=== PATIENT | male | born 1985 | race Caucasian/White ===

== ENCOUNTER 2016-08-09 06:35 | Emergency (ER) | payer BC ==
[2016-08-09 06:47] VITALS: TEMP 97.3; O2SAT 99
--- NOTE | 2016-08-09 07:29 | C.PDOC ---
History Of Present Illness 31 y/o male no pmhx presents to the ED with complaints of left upper back and neck pain x4 days. Pain is worse when turning head to left and movement of the shoulder. Pt admits to heavy lifting at work. Denies trauma. No medications taken. Denies weakness, numbness or any other complaints. Time Seen by Provider: 08/09/16 07:11 Chief Complaint (Nursing): Headache History Per: Patient History/Exam Limitations: no limitations Onset/Duration Of Symptoms: Days Current Symptoms Are (Timing): Still Present Severity: Moderate Quality: "Pain" Preceeding Symptoms: None Recent travel outside of the [place]: No Past Medical History Reviewed: Historical Data, Nursing Documentation, Vital Signs Vital Signs: Last Vital Signs Temp 97.3 F L 08/09/16 06:42 Pulse 63 08/09/16 06:42 Resp 16 08/09/16 06:42 BP 113/7 L 08/09/16 06:42 Pulse Ox 99 08/09/16 07:31 Family History: States: Unknown Family Hx - Social History Hx Alcohol Use: Yes Hx Substance Use: No - Immunization History Hx Influenza Vaccination: No Hx Pneumococcal Vaccination: No Review Of Systems Except As Marked, All Systems Reviewed And Found Negative. Constitutional: Negative for: Fever Musculoskeletal: Positive for: Neck Pain, Back Pain Neurological: Negative for: Weakness, Numbness Physical Exam - Physical Exam Additional Physical Exam Comments: Constitutional: No acute distress. Head: Normocephalic. Atraumatic. Eyes: PERRL. Neck: Supple. Paraspinal tenderness left neck, reproducible with movement. Cardiovascular: Regular rate. Radial pulse 2+ bilaterally. Chest: No tenderness. Respiratory: Clear to auscultation bilaterally. Back: No CVA tenderness. Musculoskeletal: Paraspinal tenderness to left upper back, reproducible with movement. No tenderness or swelling of extremities. Skin: No rash. Neurologic: Alert, no focal deficit. ED Course And Treatment O2 Sat by Pulse Oximetry: 99 (room air) Pulse Ox Interpretation: Normal Medical Decision Making Medical Decision Making: Plan: * toradol * muscle relaxant Discharge home, instructed to follow up with PMD. Disposition - Disposition Disposition: HOME/ ROUTINE Disposition Time: 07:43 Condition: STABLE Prescriptions: Ibuprofen [Motrin] 600 mg PO Q6 #25 tab Methocarbamol [Robaxin-750] 1 tab PO Q8H #12 tablet Instructions: Muscle Strain (ED) Forms: Work Excuse - Clinical Impression Clinical Impression: Muscle strain - Scribe Statement The provider has reviewed the documentation as recorded by the Scribe Alfonso Brandt Provider Attestation: All medical record entries made by the Scribe were at my direction and personally dictated by me. I have reviewed the chart and agree that the record accurately reflects my personal performance of the history, physical exam, medical decision making, and the department course for this patient. I have also personally directed, reviewed, and agree with the discharge instructions and disposition.
[2016-08-09 08:07] VITALS: BP 115/73; PULSE 69; RESP 18
== END 2016-08-09 08:07 | disposition home or self-care (01) ==
LOC: C.ER 06:35
DX: S16.1XXA Strain of muscle, fascia and tendon at neck level, initial encounter (principal); X50.9XXA Other and unspecified overexertion or strenuous movements or postures, initial encounter; Y92.89 Other specified places as the place of occurrence of the external cause; Y99.0 Civilian activity done for income or pay
CPT/HCPCS: 96372; 99284; J1885